=== PATIENT | female | born 2000 | race Caucasian/White ===

== ENCOUNTER 2024-03-12 22:10 | Emergency (ER) | payer BC, SELFPAY ==
[2024-03-12 22:13] VITALS: BP 120/74; PULSE 82; RESP 18; TEMP 36.6; O2SAT 100; BMI 28.2
[2024-03-12 22:37] VITALS: BP 130/85; PULSE 61; RESP 20; O2SAT 100
[2024-03-12 23:06] VITALS: BP 121/78; PULSE 74; RESP 20; O2SAT 99
[2024-03-12 23:30] VITALS: O2SAT 99
[2024-03-12 23:31] VITALS: BP 122/81; PULSE 68; RESP 20; O2SAT 97
[2024-03-12] MEDS: LORazepam 1 MG TABLET PO (23:35)
--- NOTE | 2024-03-12 23:37 | ED_ITS ---
HPI - General Adult General Date Seen: 03/12/24 Chief complaint: Arrhythmia/Palpitations Stated complaint: Shortness of breath, lightheaded Time Seen by Provider: 03/12/24 23:07 History of Present Illness HPI narrative: This is a 23-year-old female who reports being generally healthy but does have a history of OCD, previous pilonidal cyst. She has no previous history of any heart or lung disease. [facility]ations. She has been healthy and well lately. No recent illness, cough, trouble breathing, chest pain. No vomiting or diarrhea. Normal appetite. No whole food intake. That she was trying to go to sleep tonight she felt something ?weird? happen with her heart. She describes having an event where her heart seemed to pause for a beat and then Walter really hard. This was an isolated beat and then occurred again 1 or 2 minutes later. These events made her feel short of breath. She felt really short of breath lying down to set up but still felt short of breath and anxious. She noted tingling and pins and needles in her hands. Although each episode with her heart was only temporary, lasting a split 2nd, she had fairly persistent feelings of tingling in her hands and shortness of breath the last until have she arrived here to the ER. She recalls that she had another episode where her heart did a funny ?weird? beat a month or 2 ago. No other more recent palpitations. She has a history of OCD and had been on antipsychotics for that. They were causing some trouble with so she stopped them several months ago. She is not currently on any meds. Mental health is otherwise okay Related Data Home Medications ?Medication ?Instructions ?Recorded ?Confirmed No Known Home Medications 10/09/23 03/12/24 Allergies Allergy/AdvReac Type Severity Reaction Status Date / Time No Known Drug Allergies Allergy Verified 03/12/24 22:17 [facility] Medical History (Updated 03/13/24 @ 00:34 by Jewel Goetz MD) Galactorrhea ?N64.3 - Galactorrhea not associated with childbirth (ICD-10) Surgical History History of excision of pilonidal cyst (~2020) ?Z98.890 - Other specified postprocedural states (ICD-10) Family History (Updated 10/23/23 @ 15:04 by Sherry Kennedy MD) Father Skin cancer Social History Smoking Status: Never smoker Second hand tobacco smoke exposure: No How often do you have a drink containing alcohol: never AUDIT-C Alcohol total score: 0 Non-prescribed substance use: denies use Exam Narrative: Exam Narrative: Constitutional: Appears well-developed and well-nourished. Alert. Conversant. Non toxic. HENT: Head: Atraumatic. Nose: Nose normal. Mouth/Throat: Oral mucosa is clear and moist. no trismus. Pharynx normal. Tonsils symmetric. No tonsillar enlargement, erythema, or exudate. Eyes: Conjunctivae normal. EOM normal. Pupils equal, round, and reactive to light. No scleral icterus. Neck: Normal range of motion. Neck supple. No tracheal deviation present. No thyromegaly Cardiovascular: Normal rate, regular rhythm. No gallop. No friction rub. No murmur heard. Symmetric radial artery pulses Pulmonary/Chest: Effort normal. No stridor. No respiratory distress. No wheezes. No rales. No rhonchi . No tenderness. Abdominal: Soft. Bowel sounds normal. No distension. No mass. No tenderness. No rebound. No guarding. Musculoskeletal: RUE: Normal range of motion. No tenderness. No deformity LUE: Normal range of motion. No tenderness. No deformity RLE: Normal range of motion. No edema. No tenderness. No deformity LLE: Normal range of motion. No edema. No tenderness. No deformity Lymph: No cervical adenopathy. Neurological: Alert and oriented to person, place, and time. Normal strength. CN II-VII intact. No sensory deficit. GCS eye subscore is 4. GCS verbal subscore is 5. GCS motor subscore is 6. Normal coordination Skin: Skin is warm and dry. No rash noted. No pallor. Normal capillary refill. Psychiatric: Normal mood. Polite. She is very apprehensive. She has doubting her description of her events. She is also anxious. Endorses feeling anxious, tingling is in her hands, short of breath after the episodes occurred. Has a history of OCD. Not currently on meds. No previously diagnosed history of anxiety. She is otherwise calm and polite. Const: Vital Signs, click to edit/add: Vital Signs - 24 hr 03/12/24 22:13 03/12/24 22:37 03/12/24 23:06 Temperature 97.8 F Pulse Rate 61 74 Pulse Rate [Right Pulse Oximeter] 82 Respiratory Rate 18 20 20 Blood Pressure 130/85 121/78 Blood Pressure [Ri ght Upper Arm] 120/74 Pulse Oximetry 100 100 99 Oxygen Delivery Me thod Room Air 03/12/24 23:30 03/12/24 23:31 03/13/24 00:26 Temperature 97.8 F Pulse Rate 68 Pulse Rate [Right Pulse Oximeter] 85 Respiratory Rate 20 20 Blood Pressure 122/81 Blood Pressure [Ri ght Upper Arm] 118/72 Pulse Oximetry 99 97 97 Oxygen Delivery Me thod Room Air Course Vital Signs Vital signs: Initial Vital Signs Temperature 97.8 F 03/12/24 22:13 Temperature Source Temporal Artery Scan 03/12/24 22:13 Pulse Rate 82 03/12/24 22:13 Pulse Rhythm Regular 03/12/24 22:13 Respiratory Rate 18 03/12/24 22:13 Blood Pressure 120/74 03/12/24 22:13 Blood Pressure Mean 89 03/12/24 22:13 Blood Pressure Position Sitting 03/12/24 22:13 Pulse Oximetry 100 03/12/24 22:13 Oxygen Delivery Method Room Air 03/12/24 22:13 Vital Signs Temperature 97.8 F 03/12/24 22:13 Pulse Rate 82 03/12/24 22:13 Respiratory Rate 18 03/12/24 22:13 Blood Pressure 120/74 03/12/24 22:13 Pulse Oximetry 100 03/12/24 22:13 Oxygen Delivery Method Room Air 03/12/24 22:13 Temperature 97.8 F 03/13/24 00:26 Pulse Rate 85 03/13/24 00:26 Respiratory Rate 20 03/13/24 00:26 Blood Pressure 118/72 03/13/24 00:26 Pulse Oximetry 97 03/13/24 00:26 Oxygen Delivery Method Room Air 03/13/24 00:26 Medications Administered Medications: Discontinued Medications Generic Name Dose Route Start Last Admin Trade Name Freq PRN Reason Stop Dose Admin Lorazepam 1 mg 03/12/24 23:30 03/12/24 23:35 Lorazepam 1 Mg Tablet PO 03/12/24 23:31 1 mg ONCE ONE Administration Medical Decision Making MDM Narrative Medical decision making narrative: This patient presents for evaluation of palpitations. Initial ECG showsnormal sinus rhythm and no dysrhythmogenic abnormality such as WPW, prolonged QT, Brugada syndrome, and no ischemia. resistance welder while the patient here in the ER showed no dysrhythmia or ectopy. Based on history I suspect she may have had an isolated PVCs or PACs. However no ectopy or arrhythmias noted here in the ER. A broad differential diagnosis was considered including SVT, Atrial fibrillation, ventricular arrhythmia, thyroid disease, acute electrolyte abnormality, drugs/medications, caffeine intake or other stimulants, medication side effect, anemia, heart disease, PE, among others. The workup and exam here in ED shows not specific cause of the patient's palpitations, and no risks factors to warrant admission. Clinical judgement suggests that supportive outpatient management is indicated. She will follow-up with primary care to arrange outpatient Holter monitor. Precautions for return to the ER reviewed. Lab Data Labs: Lab Results 03/12/24 Range/Units 23:45 WBC 10.36 (4.50-11.00) K/uL RBC 4.69 (4.00-5.20) m/uL Hgb 13.4 (12.0-16.0) gm/dL Hct 39.6 (33.0-51.0) % MCV 84 (80-100) fL MCH 29 (26-34) pg MCHC 34 (32-36) gm/dL RDW Coeff of Yahaira 12.6 (11.5-15.5) % Plt Count 319 (140-440) K/uL Neut % (Auto) 75.4 H (42.0-72.0) % Lymph % (Auto) 17.0 L (20-44) % [place] % (Auto) 5.9 (0.0-11.0) % Eos % (Auto) 1.0 (0.0-7.0) % Baso % (Auto) 0.4 (0.0-3.0) % Neut # (Auto) 7.80 H (1.7-7.0) K/uL Lymph # (Auto) 1.80 (0.90-2.90) K/uL [place] # (Auto) 0.60 (0.00-0.90) K/UL Eos # (Auto) 0.10 (0.00-0.50) K/uL Baso # (Auto) 0.04 (0.00-0.30) K/uL Abs Immat Gran (auto) 0.03 (0.00-0.30) K/uL Imm/Tot Granulo (auto) 0.3 % Sodium 138 (135-149) mmol/L Potassium 3.8 (3.6-5.1) mmol/L Chloride 107 (96-114) mmol/L Carbon Dioxide 22 (20-32) mmol/L Anion Gap 9 (7-15) mEq/L BUN 12 (5-24) mg/dL Creatinine 0.7 (0.5-1.5) mg/dL Estimated Creat Clear 123.63 Estimated GFR 126 ml/min Glucose 128 H (60-115) mg/dL Calcium 9.6 (8.4-10.6) mg/dL Troponin I < 0.01 L (0.01-0.04) ng/mL ECG Data Attestation: I personally reviewed and interpreted this ECG as follows: Interpretation: Normal sinus rhythm with sinus arrhythmia Rate: 66 UT: 144. No delta waves. QRS axis: Rightward axis. No pathologic Q-waves. ST segment/T wave: No ST segment elevation or depression QTc: 419 Discharge Plan Discharge Clinical Impression: Heart palpitations Patient Disposition: Home, Self-Care Condition: Stable Instructions: Heart Palpitations (DC) Additional Instructions: Please follow-up with your regular doctor within the next 3-5 days for recheck and to arrange an outpatient heart monitor If you have any problems such as new chest pain, worsening trouble breathing, worsening palpitations, please come back to the ER right away. Prescriptions: No Action No Known Home Medications Follow Up/Referrals: Provider,Not a Local [Primary Care Provider] - Stand Alone Forms: [employer] Info Instructions
[2024-03-12 23:54] LABS: Basophils Absolute Auto 0.04 K/uL (0.00-0.30); Basophils Percent Auto 0.4 % (0.0-3.0); Hematocrit 39.6 % (33.0-51.0); Hemoglobin* 13.4 gm/dL (12.0-16.0); Immature Granulocytes Abs Auto 0.03 K/uL (0.00-0.30); Immature Granulocytes Pct Auto 0.3 %; Mean Corpuscular HGB Conc 34 gm/dL (32-36); Mean Corpuscular Hemoglobin 29 pg (26-34); Mean Corpuscular Volume 84 fL (80-100); Monocytes Percent Auto 5.9 % (0.0-11.0); Neutrophils Percent Auto 75.4 % (42.0-72.0); Platelet Count* 319 K/uL (140-440); RDW Coefficient of Variation % 12.6 % (11.5-15.5); Red Blood Count 4.69 m/uL (4.00-5.20); White Blood Count* 10.36 K/uL (4.50-11.00)
[2024-03-13] LABS: Slide Review Reflex No
[2024-03-13 00:08] LABS: Anion Gap 9 mEq/L (7-15); Blood Urea Nitrogen* 12 mg/dL (5-24); Calcium* 9.6 mg/dL (8.4-10.6); Carbon Dioxide* 22 mmol/L (20-32); Chloride* 107 mmol/L (96-114); Creatinine* 0.7 mg/dL (0.5-1.5); Est. Creatinine Clearance* 123.63; Estimated Glomerular Filt Rate 126 ml/min; Glucose* 128 mg/dL (60-115); Potassium* 3.8 mmol/L (3.6-5.1); Sodium* 138 mmol/L (135-149)
[2024-03-13 00:24] LABS: Troponin I* < 0.01 ng/mL (0.01-0.04)
[2024-03-13 00:26] VITALS: BP 118/72; PULSE 85; RESP 20; TEMP 36.6; O2SAT 97
[2024-03-13 00:40] VITALS: BP 118/72; PULSE 85; RESP 20; TEMP 36.6
== END 2024-03-13 00:45 | disposition home or self-care (01) ==
PROVIDERS: Emergency Provider Emergency Medicine
DX: R00.2 Palpitations (principal)
CPT/HCPCS: 36415; 80048; 84484; 85025; 93005; 94761; 99283; 99284; A9270

== ENCOUNTER 2024-04-02 09:06 | Outpatient (CLI) | payer BC, SELFPAY ==
[2024-04-02 15:45] LABS: Bacterial Vaginosis* Negative (Negative); Candida glab/krus NOT DETECTED (No Detected); Candida species DETECTED (No Detected); Trichomonas vaginalis NOT DETECTED (No Detected)
== END 2024-04-02 09:07 | disposition home or self-care (01) ==
LOC: FRMREF 09:07
PROVIDERS: Visit Provider Registered Nurse
DX: L29.2 Pruritus vulvae (principal)
CPT/HCPCS: 81513; 87481; 87661